=== PATIENT | male | born 1935 ===

== ENCOUNTER 2019-03-27 07:23 | Emergency (ER) | payer MEDICARE ==
[2019-03-27] MEDS ORDERED: ASPIRIN 81 MG TABLET, CHEWABLE PO ONE (07:44)
[2019-03-27 08:15] LABS: ABSOLUTE EOSINOPHILS # (AUTO) 0.3 10^3/uL (0.0-0.6); ABSOLUTE LYMPHOCYTES (AUTO) 1.8 10^3/uL (0.5-4.7); ABSOLUTE MONOCYTES (AUTO) 0.8 10^3/uL (0.1-1.4); ABSOLUTE NEUT (AUTO) 5.6 10^3/uL (1.7-8.2); BASOPHILS % (AUTO) 0.5 % (0-2); EOSINOPHILS % (AUTO) 3.9 % (0-6); HEMATOCRIT 34.7 % (37.9-51.0); HEMOGLOBIN 11.5 g/dL (13.5-17.0); LYMPHOCYTES % (AUTO) 20.6 % (13-45); MEAN CORPUSCULAR HEMOGLOBIN 28.1 pg (27.0-33.4); MEAN CORPUSCULAR VOLUME 85 fl (80-97); MONOCYTES % (AUTO) 9.4 % (3-13); PLATELET COUNT 333 10^3/uL (150-450); RED BLOOD COUNT 4.07 10^6/uL (4.35-5.55); SEGMENTED NEUTROPHILS % (AUTO) 65.6 % (42-78); TOTAL CELLS COUNTED % (AUTO) 100 %; WHITE BLOOD COUNT 8.5 10^3/uL (4.0-10.5)
--- NOTE | 2019-03-27 08:17 | EKG REPORT ---
SEVERITY:- ABNORMAL ECG - SINUS RHYTHM LAD, CONSIDER LEFT ANTERIOR FASCICULAR BLOCK NONSPECIFIC T ABNORMALITIES, LATERAL LEADS : Confirmed by: Alexis Wagner MD 27-Mar-2019 08:16:18
[2019-03-27] MEDS ORDERED: ACETAMINOPHEN 325 MG TABLET PO ONE (08:28)
[2019-03-27 08:30] LABS: ALBUMIN 3.9 g/dL (3.5-5.0); ALKALINE PHOSPHATASE 73 U/L (38-126); ANION GAP 8 (5-19); ASPARTATE AMINO TRANSFERASE 19 U/L (17-59); BILIRUBIN,DIRECT 0.3 mg/dL (0.0-0.4); BILIRUBIN,TOTAL 0.4 mg/dL (0.2-1.3); BLOOD UREA NITROGEN 18 mg/dL (7-20); CALCIUM 9.7 mg/dL (8.4-10.2); CARBON DIOXIDE 28 mmol/L (22-30); CHLORIDE 99 mmol/L (98-107); CREATINE KINASE 49 U/L (55-170); GLUCOSE 116 mg/dL (75-110); POTASSIUM 4.4 mmol/L (3.6-5.0); TOTAL PROTEIN 6.7 g/dL (6.3-8.2)
--- NOTE | 2019-03-27 08:34 | ER Document Report ---
ED Cardiac - General Chief Complaint: Chest Pain Stated Complaint: CHEST PAIN Time Seen by Provider: 03/27/19 08:20 TRAVEL OUTSIDE OF THE [place] IN LAST 30 DAYS: No - HPI Notes: Patient is an 84-year-old male who presents to the emergency department for right-sided chest pain. It started yesterday. It does not radiate. He describes it as sharp and stabbing. It is only present with coughing and deep b reaths. Absent of these processes, he is not having pain. He states he has had a cough as of late. He denies any fevers or chills. He had one episode of emesis after eating some lasagna a few days ago. He states "I should not have eaten that." He states is not uncommon for him to have emesis after eating spicy or acidic foods. He denies feeling short of breath. He has been taking his medications as prescribed. Patient also states he has pain in his left shoulder region. 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 He describes this is unchanged. - Related Data Allergies/Adverse Reactions: No Known Allergies Allergy (Unverified 03/27/19 07:31) Past Medical History - General Information source: Patient - Social History Smoking Status: Former Smoker Frequency of alcohol use: None Drug Abuse: None Family History: Reviewed & Not Pertinent Patient has suicidal ideation: No Patient has homicidal ideation: No - Past Medical History Cardiac Medical History: Reports: Hx Coronary Artery Disease, Hx Heart Attack, Hx Hypercholesterolemia, Hx Hypertension Pulmonary Medical History: Reports: Hx Asthma Renal/ Medical History: Reports: Hx Renal Insufficiency. Denies: Hx Peritoneal Dialysis Malignancy Medical History: Reports Other - Bladder cancer GI Medical History: Reports: Hx Gastroesophageal Reflux Disease Musculoskeletal Medical History: Reports Hx Arthritis, Reports Hx Gout Skin Medical History: Reports Hx Psoriasis Past Surgical History: Reports: Hx Cardiac Catheterization, Hx Cardiac Surgery - CABG December 2018 Review of Systems - Review of Systems Constitutional: No symptoms reported EENT: No symptoms reported Cardiovascular: See HPI Respiratory: See HPI Gastrointestinal: See HPI Genitourinary: No symptoms reported Musculoskeletal: No symptoms reported Skin: No symptoms reported Neurological/Psychological: No symptoms reported Physical Exam - Vital signs Vitals: Temp Pulse Resp BP Pulse Ox 97.9 F 73 16 102/45 L 99 03/27/19 07:33 03/27/19 07:33 08/09/19 07:33 03/27/19 07:33 03/27/19 07:33 - Notes Notes: This is a pleasant 84-year-old male who appears his stated age in no acute distress. Vital signs reviewed, please refer to chart. Head is normocephalic, a traumatic. Pupils equal round, reactive to light. Neck is supple without meningismus. Heart is regular rate and rhythm. Lungs are clear to auscultation bilaterally. No obvious abnormalities on examination of the chest wall. He has a well-healing surgical scar consistent with recent CABG. He is tender to palpation over the right anterior chest wall, from approximately the third through the sixth rib. It is diffuse. No palpable deformities. Abdomen is soft, nontender, normoactive bowel sounds throughout. Extremities without cyanosis, clubbing. Posterior calves are nontender. Peripheral pulses are equal. Skin is warm and dry. Patient is awake, alert, neurological exam is nonfocal. Course - Re-evaluation Re-evalutation: 03/27/19 08:36 Patient presents emergency department for evaluation of right-sided chest pain. It is reproducible, sharp, associated with cough. He states he has no pain when he is not coughing or taking a deep breath. However, given his age and recent CABG, I am inclined to pursue a cardiac work-up. He is placed on a awake overnight monitor. He is given aspirin and labs were obtained per protocol. We will continue to monitor. 03/27/19 11:58 Laboratory investigations otherwise unremarkable. Patient is feeling improved after Tylenol. Again his pain is only when he takes a deep breath or moves. He just recently had CABG. I suspect this is all chest wall pain. He has no associated dyspnea. Patient's daughter arrives, admits that he has been mowing the lawn, using hedge clippers recently. I suspect this is the etiology to his pain. He is told to rest. Take Tylenol as needed for severe pain. Follow-up with primary care, return to the ED with worsening or concerning symptoms of any sort. - Vital Signs Vital signs: Temp Pulse Resp BP Pulse Ox 97.9 F 73 14 110/54 L 100 03/27/19 07:33 03/27/19 07:33 03/27/19 09:01 03/27/19 09:01 03/27/19 09:01 - Laboratory Result Diagrams: 03/27/19 08:00 03/27/19 08:00 Laboratory results interpreted by me: 03/27/19 03/27/19 08:00 08:00 RBC 4.07 L Hgb 11.5 L Hct 34.7 L RDW 15.0 H Sodium 135.0 L Creatinine 1.69 H Est GFR ( Amer) 47 L Est GFR (Non-Af Amer) 39 L Glucose 116 H Creatine Kinase 49 L - Diagnostic Test Radiology reviewed: Reports reviewed Radiology results interpreted by me: 03/27/19 11:59 Chest X-Ray 03/27/19 10:29 IMPRESSION: No evidence of acute cardiopulmonary process. - EKG Interpretation by Me Additional EKG results interpreted by me: 03/27/19 11:59 Sinus rhythm with a rate of 70 bpm. Left axis deviation. No acute ST changes concerning for ischemia or infarction. No studies available for comparison. Discharge - Discharge Clinical Impression: Chest wall pain Condition: Stable Disposition: HOME, SELF-CARE Instructions: Chest Wall Pain ([facility]) Additional Instructions: Tylenol as needed for pain. Moist heat to the area. Rest. Follow-up with your doctor next week. Return emergency department with worsening or new concerning symptoms of any sort.
[2019-03-27 08:42] LABS: CREATINE KINASE MB 0.26 ng/mL (<4.55)
[2019-03-27 08:45] LABS: TROPONIN I < 0.012 ng/mL
--- NOTE | 2019-03-27 11:12 | RADIOLOGY REPORT (SQ) ---
EXAM DESCRIPTION: CHEST SINGLE VIEW COMPLETED DATE/TIME: 03/27/2019 11:00 am REASON FOR STUDY: chest pain COMPARISON: None. EXAM PARAMETERS: NUMBER OF VIEWS: One view. TECHNIQUE: Single frontal radiographic view of the chest acquired. RADIATION DOSE: NA LIMITATIONS: None. FINDINGS: LUNGS AND PLEURA: No opacities, masses or pneumothorax. No pleural effusion. MEDIASTINUM AND HILAR STRUCTURES: No masses. Contour normal. HEART AND VASCULAR STRUCTURES: Heart normal in size. Aortic atherosclerosis. . Prior CABG. BONES: Median sternotomy changes. HARDWARE: CABG hardware. OTHER: No other significant finding. IMPRESSION: No evidence of acute cardiopulmonary process. TECHNICAL DOCUMENTATION: JOB ID: [id number] [employer]- All Rights Reserved Reading location - IP/workstation name: [email or web address]
[2019-03-27 12:27] VITALS: BP 106/50
== END 2019-03-27 12:41 | disposition home or self-care (01) ==
LOC: ER 07:23
DX: R07.89 Other chest pain (principal); E78.00 Pure hypercholesterolemia, unspecified; I10 Essential (primary) hypertension; I25.2 Old myocardial infarction; Z95.1 Presence of aortocoronary bypass graft
CPT/HCPCS: 93005; 36415; 82553; 82550; 85025; 80053; 84484; 71045; 93010; A9270 ×2; 99284